=== PATIENT | female | born 1985 | race Caucasian/White ===

== ENCOUNTER 2020-03-19 16:57 | Inpatient (IN) ==
[2020-03-19 17:52] LABS: Basophils # 0.1 K/mcL (0.0-0.2); Basophils % 0.6 %; Eosinophils # 0.1 K/mcL (0.0-0.6); Eosinophils % 0.8 %; Hematocrit 40.6 % (35.3-44.9); Hemoglobin 12.7 g/dL (11.5-15.4); Immature Granulocytes % 0.8 % (0-4); Lymphocytes # 3.4 K/mcL (0.6-4.6); Lymphocytes % 27.3 %; Mean Corpuscular HGB Conc 31.3 g/dL (31.6-35.5); Mean Corpuscular Hemoglobin 25.8 pg (28.0-33.3); Mean Corpuscular Volume 82.4 fL (83.0-100.0); Monocytes # 0.5 K/mcL (0.0-1.3); Monocytes % 3.6 %; Neutrophils # 8.3 K/mcL (1.6-8.9); Platelet Count 341 K/mcL (140-400); Red Blood Count 4.93 M/mcL (3.82-4.97); Red Cell Distribution Width 15.6 % (11.5-14.5); Segmented Neutrophils % 66.9 %; White Blood Count 12.4 K/mcL (4.3-11.1)
[2020-03-19 18:11] LABS: Acetaminophen < 10 mcg/mL (10-20); BUN/Creatinine Ratio 26 (6-26); Blood Urea Nitrogen 14 mg/dL (6-20); Calcium 10.1 mg/dL (8.6-10.3); Carbon Dioxide 30 mEq/L (23-29); Chloride 101 mEq/L (98-107); Ethanol < 10 mg/dL (Less than 10); Glucose 246 mg/dL (70-105); Osmolality,Calculated 295 (280-300); Salicylate < 2.5 mg/dL (15.0-30.0); Sodium 138 mEq/L (136-145); eGFR For African Americans > 60 (> 60); eGFR For Non-African Americans > 60 (> 60)
[2020-03-19 18:16] LABS: Amphetamine Screen,Urine Negative ng/mL (Cutoff=1000); Barbiturate Screen,Urine Negative ng/mL (Cutoff=200); Benzodiazepines Screen,Urine Negative ng/mL (Cutoff=200); Cannabinoid Screen,Urine Negative ng/mL (Cutoff = 50); Cocaine Screen,Urine Negative ng/mL (Cutoff= 300); Opiate Screen,Urine Negative ng/mL (Cutoff=300); Phencyclidine Screen,Urine Negative ng/mL (Cutoff=25)
[2020-03-19 18:18] LABS: Bacteria,Urine Few per hpf (None-Few); Bilirubin,Urine Negative (Negative); Blood,Urine Moderate (Negative); Clarity,Urine Turbid (Clear); Color,Urine Yellow (Yellow); Glucose,Urine (UA) >=1000 mg/dL (Normal); Ketones,Urine Negative (Negative); Leukocyte Esterase,Urine Small (Negative); Mucus,Urine Few per lpf (None-Few); Nitrite,Urine Negative (Negative); Protein,Urine 100 mg/dL (Neg-Trace); Specific Gravity,Urine > 1.030 (1.010-1.025); Squamous Epithelial Cell,Urine Moderate per hpf (None-Few); Urobilinogen,Urine Normal (Normal); WBC,Urine 15-30 per hpf (0-3)
[2020-03-19] MEDS ORDERED: traZODone 50 MG TABLET PO PRN (19:43)
[2020-03-19] MEDS ORDERED: *HR* LORazepam 2 MG/ML VIAL IM PRN (19:43)
[2020-03-19] MEDS ORDERED: Haloperidol Lactate 5 MG/ML VIAL IM PRN (19:43)
[2020-03-19] MEDS ORDERED: haloperidoL 5 MG TABLET PO PRN (19:43)
[2020-03-19] MEDS ORDERED: *HR* LORazepam 1 MG TABLET PO PRN (19:43)
[2020-03-19] MEDS: carvediloL 6.25 MG TABLET PO SCH (22:19)
[2020-03-19] MEDS: hydrOXYzine pamoate 25 MG CAPSULE PO SCH (22:19)
[2020-03-20] MEDS: Insulin DETEMIR 100 UNIT/ML X5UNITS SQ SCH ×3 (00:50→20:55)
[2020-03-20] MEDS: *HR* Metformin 500 MG TABLET PO SCH ×2 (07:32→16:46)
[2020-03-20] MEDS: hydrOXYzine pamoate 25 MG CAPSULE PO SCH ×3 (08:47→20:55)
[2020-03-20] MEDS: carvediloL 6.25 MG TABLET PO SCH ×3 (08:48→22:56)
[2020-03-20] MEDS: Verapamil ER (24 HR) 120 MG TABLET.ER PO SCH (08:48)
[2020-03-20] MEDS: ARIPiprazole 10 MG TABLET PO SCH (08:49)
[2020-03-20] MEDS: Loratadine 10 MG TABLET PO SCH (08:52)
[2020-03-20] MEDS ORDERED: cephALEXin 500 MG CAPSULE PO ONE (11:00)
[2020-03-20] MEDS: Ibuprofen 600 MG TABLET PO PRN (11:10)
[2020-03-21] MEDS: *HR* Metformin 500 MG TABLET PO SCH ×2 (07:42→17:45)
[2020-03-21] MEDS: hydrOXYzine pamoate 25 MG CAPSULE PO SCH ×3 (08:44→20:52)
[2020-03-21] MEDS: Loratadine 10 MG TABLET PO SCH (08:44)
[2020-03-21] MEDS: ARIPiprazole 10 MG TABLET PO SCH (08:44)
[2020-03-21] MEDS: Verapamil ER (24 HR) 120 MG TABLET.ER PO SCH (08:45)
[2020-03-21] MEDS: carvediloL 6.25 MG TABLET PO SCH ×3 (08:46→20:52)
[2020-03-21] MEDS: Insulin DETEMIR 100 UNIT/ML X5UNITS SQ SCH ×2 (08:49→20:53)
[2020-03-21] MEDS: Ibuprofen 600 MG TABLET PO PRN (10:32)
[2020-03-21 11:07] LABS: Chol/HDL Ratio 4.7 (0-4.9)
[2020-03-21 13:34] LABS: Thyroid Stimulating Hormone 1.199 mcIU/mL (0.340-5.600)
[2020-03-22 08:26] VITALS: BP 132/85
[2020-03-22] MEDS: ARIPiprazole 10 MG TABLET PO SCH (09:23)
[2020-03-22] MEDS: *HR* Metformin 500 MG TABLET PO SCH (09:24)
[2020-03-22] MEDS: Verapamil ER (24 HR) 120 MG TABLET.ER PO SCH (09:24)
[2020-03-22] MEDS: hydrOXYzine pamoate 25 MG CAPSULE PO SCH (09:24)
[2020-03-22] MEDS: Loratadine 10 MG TABLET PO SCH (09:25)
[2020-03-22] MEDS: carvediloL 6.25 MG TABLET PO SCH (09:25)
[2020-03-22] MEDS: Insulin DETEMIR 100 UNIT/ML X5UNITS SQ SCH (09:26)
[2020-03-22] MEDS: Ibuprofen 600 MG TABLET PO PRN (09:37)
[2020-03-22 10:59] LABS: Estimated Average Glucose 275 mg/dl
== END 2020-03-22 11:30 | disposition home or self-care (01) | DRG 753 ==
LOC: EMEROOARM 16:57 → 1ANU 19:37
PROVIDERS: ADMIT Psychiatry & Neurology Psychiatry; ATTEND Psychiatry & Neurology Psychiatry